=== PATIENT | female | born 1980 | race Caucasian/White ===

== ENCOUNTER → 2017-04-25 07:46 | Outpatient (CLI) | payer MEDICAID ==
--- NOTE | ~2017-04-25 | EMG ---
PATIENT:INDY WARREN DATE OF SERVICE: 04/25/17 MEDICAL RECORD: [id number] DATE OF : 84 LOCATION: [facility] ADMISSION DATE: REFERRING PHYSICIAN: PRAMOD CASTRO MD INTERPRETING PHYSICIAN: SENA FRAZIER MD DATE OF SERVICE: 04/25/2017 Electromyographic Report REFERRED BY: Dr. Castro as an outpatient. ELECTROMYOGRAPHIC DATA: Electromyographic examination is limited to the right upper extremity. In the right upper extremity, right median motor stimulation elicits a compound motor action potential with a distal latency of 3.3 milliseconds, peak amplitude of 10 millivolts and calculated conduction velocity of 55 meters per second. Right ulnar motor stimulation elicits a compound motor action potential with a distal latency of 3.0 milliseconds, peak amplitude of 10 millivolts and calculated conduction velocity of 48 meters per second. Right ulnar motor stimulation across the elbow fails to elicit evidence of conduction block at this level. Antidromic right median sensory stimulation elicits a response with a distal latency of 3.8 milliseconds, amplitude of 25 microvolts and calculated conduction velocity of 57 meters per second. Antidromic right ulnar sensory stimulation elicits a response with a distal latency of 4.1 milliseconds, amplitude of 26 microvolts and calculated conduction velocity of 59 meters per second. The right median F wave has a latency of 27 milliseconds. Needle electrode examination is limited to the right upper extremity as well. Muscles interrogated include the abductor pollicis brevis, first dorsal interosseous, abductor digiti minimi, pronator teres, biceps brachii, triceps and deltoid. There is no abnormality of insertional activity and no abnormal spontaneous activity is seen in all muscles interrogated. Motor unit potential morphology and the pattern of motor unit potential firing and recruitment is normal in all muscles sampled. INTERPRETATION: Electromyographic examination of the right upper extremity is normal with the exception that the median and ulnar sensory distal latencies are at the upper limits of normal. 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 No similar changes may also be seen in the setting of a more diffuse disorder such as a sensorimotor peripheral polyneuropathy beginning to affect the upper extremities. Clinical correlation is required. There is no electrical evidence of a cervical radiculopathy or other lesion of the lower motor neuron in the upper extremities at this time. There is no evidence of active denervation. TRANSINT:[id number] Voice Confirmation ID: [id number] DOCUMENT ID: [id number] ELECTROMYGRAM/NERVE CONDUCTION [id number] INDY WARREN DONALD P MD CC: [id number] DICTATION DATE: 04/25/17827 SALES REPRESENTATIVE SUPERVISOR: 04/26/17 0053 DEP CLI 04/25/17 [place] [id number] [place] [id number]
== END | disposition home or self-care (01) ==
LOC: D.CN 03-27 09:00
DX: G56.91 Unspecified mononeuropathy of right upper limb (principal)